=== PATIENT | male | born 1970 | race Caucasian/White ===

== ENCOUNTER 2018-04-11 07:30 | Inpatient (IN) | payer BC ==
--- NOTE | 2019-01-03 13:21 | HP ---
HISTORY AND PHYSICAL: DATE OF ADMISSION/SURGERY: 01/14/19 DATE OF OFFICE VISIT: 01/03/19 SURGEON: Sima Tran MD * (DICTATED BY NGUYEN TREJO) PROCEDURE: Right total hip arthroplasty. CHIEF COMPLAINT: Right hip pain. HISTORY OF PRESENT ILLNESS: Mr. Irizarry is a 48-year-old gentleman with continued complaints of right hip pain. He has failed conservative treatment and elected to proceed with a right total hip arthroplasty. PAST MEDICAL HISTORY: History of recurrent staph infections, some requiring IV antibiotics, last was over 10 years ago. PAST SURGICAL HISTORY: Fasciotomy right lower extremity. MEDICATIONS: Aleve as needed. ALLERGIES: No known drug allergies. FAMILY HISTORY: Cancer. SOCIAL HISTORY: He is a 48-year-old gentleman, lives with his . He does not smoke. He uses occasional alcohol. REVIEW OF SYSTEMS: A complete 14-point review of systems was reviewed with the patient. It was all negative or noncontributory. He denies history of DVT, PE , hepatitis, HIV, or anesthesia problems. PHYSICAL EXAMINATION GENERAL: He is well developed, well nourished, in no acute distress. VITAL SIGNS: He is 6 feet 1 inch tall, weighs 227 pounds. His blood pressure is 120/84, his heart rate is 94. HEENT: Normocephalic, atraumatic. NECK: Supple. No palpable lymph nodes. PULMONARY: The lungs are clear to auscultation bilaterally. CARDIO: Regular rate and rhythm. Strong S1, S2. ABDOMEN: Soft, nontender, nondistended. NEUROLOGICAL: He is alert and oriented x3. MUSCULOSKELETAL: Right lower extremity: The skin is intact. There are no open wounds or abrasions. He walks with an antalgic-type gait favoring his right hip. He has decreased internal and external rotation of the right hip. He has a 2+ dorsalis pedis pulse, intact sensation, and his lower extremity muscle group strengths are intact at 5/5. ASSESSMENT AND PLAN: Mr. Irizarry is a 48-year-old gentleman with severe end- stage osteoarthritis of the right hip. He has failed conservative treatment and elected to proceed with a right total hip arthroplasty. The surgery is scheduled for 01/14/[address] Tran discussed the risks and benefits of the surgery at today's visit and all of his questions were answered. He will follow up with Dr. Tran 2 weeks after the surgery. NGUYEN TREJO [id number]/CPS #: [id number] MTDD
[2019-01-13] MEDS ORDERED: Buffered Lidocaine 1% SYRIN* 1 ML/SYRINGE INTRADERM ONE (14:01)
[2019-01-14] MEDS ORDERED: Tranexamic Acid 1,000 MG in NS 0.9% 50 ML* (outpatient use) IV SCH ×2
[2019-01-14] MEDS ORDERED: Lactated Ringers 1000 ML Bag* 1,000 ML IV SCH (06:00)
[2019-01-14] MEDS ORDERED: Dexamethasone IV* 4 MG/ML 1 ML (4 MG) IV SLOW PU ONE (06:00)
[2019-01-14] MEDS ORDERED: Famotidine IV* 10 MG/ML 2 ML (20 mg) IV ONE (06:00)
[2019-01-14] MEDS ORDERED: Gabapentin CAP(*) 300 MG PO ONE (06:00)
[2019-01-14] MEDS ORDERED: celeCOXIB CAP* 200 MG PO ONE (06:00)
--- OUTSIDE RECORDS SUMMARY | 2019-01-14 13:42 | XMS REPORT | Continuity of Care Document ---
:1970 External Reference #:[id number] Author Name Aurelio Pickens M.D. (transmitted by agent of provider Edna Joshua) Address [address] [place] [address] Care Team Providers Name Role Phone Jaci Hunt M.D. 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 ETOH Use Current Alcohol Use - 1-3 Days A Week. Recreational Drug Use Never Used Drugs Allergies, Adverse Reactions, Alerts Description No Known Drug Allergies Medications Active Medications SIG Qnty Indications Ordering Date Provider Omeprazole 1 by mouth every 30caps Aurelio Pickens, 10/30/[address] M[address]D. Capsules DR Nava Allergy 1 by mouth every Unknown 10mg day Capsules Sudafed 2 tablets by mouth Unknown 30mg Tablets up to every 12 hours as needed for nasal congestion History Medications Amoxicillin/Clavulanate 1 by mouth 14tabs Aurelio Pickens, 11/25/2018 - Potassium twice a day M.D. 12/10/2018 875-125mg Tablets for 7 days Immunizations Description No Information Available Vital Signs Date Vital Result Comment 12/11/2018 8:18am Weight 234.00 lb Height 71 inches 5'11" BMI (Body Mass Index) 32.6 kg/m2 BP Systolic 111 mmHg BP Diastolic 74 mmHg Heart Rate 89 /min O2 % BldC Oximetry 96 % Body Temperature 97.1 F Pain Level 0 10/30/2018 8:42am Weight 232.00 lb Height 71 inches 5'11" BMI (Body Mass Index) 32.4 kg/m2 BP Systolic 118 mmHg BP Diastolic 76 mmHg Heart Rate 67 /min O2 % BldC Oximetry 97 % Body Temperature 98.1 F Pain Level 7 Results Test Acquired Date Facility Test Result H/L Range Note Laboratory test 11/25/2018 [facility] Cytology SEE RESULT 1 , [address] [employer]-[place] [place] [address] [phone] [id number] 2 SEE RESULT BELOW Name: TACOS ANTUNEZ : [address]: Aurelio Pickens MD Acct: [id number] Unit: [id number] AGE: 48 Location: [facility] Re11/25/18 SEX: M Status: REG REF SPEC: [id number] TATI: 11/25/18 [facility] DR: Aurleio Pickens MD REQ: [id number] RECD: 11/25/18 STATUS: SOUT _ ORDERED: [facility] INTERP [facility] COMMENTS: [id number] FINAL DIAGNOSIS Thyroid, left, fine needle aspiration: -- Benign thyroid nodule, colloid/hyperplastic (Ladora class II). The specimen demonstrates abundant watery colloid, a moderate amount of benign appearing follicular epithelium arranged in uniform sheets, medium sized follicles and only occasional small groups. No features of papillary carcinoma are seen. In this clinical setting the risk of malignancy is less than 3%. Clinical management of this thyroid nodule should be based on clinical and radiographic features as well as the above. SPECIMEN(S) RECEIVED THYROID LEFT - LEFT THYROID FINE NEEDLE ASPIRATION CONTINUED ON NEXT PAGE DEPARTMENT OF PATHOLOGY, [address] [place] [address] Matthew Herndon M.D. Director [facility] # [id number] CLINICAL HISTORY Left thyroid nodule. GROSS DESCRIPTION 1 Alcohol fixed slide(s) received from clinician, 5 Air dried slide(s) and Needle rinse in CytoLyt solution for thin layer non-machine coil assembler test.(clear) Signed by and Reported on: Matthew Herndon MD 1058 END OF REPORT DEPARTMENT OF PATHOLOGY, [address] [place] [address] Matthew Herndon M.D. Director [facility] # [id number] Procedures Date Code Description Status 11/25/2018 57527 Fine Needle Aspiration Biopsy Inlcd Ultrasound Guidance Completed 10/30/2018 43443 Ultrasound Head/Neck Completed 10/30/2018 33550 Fiberoptic Laryngoscopy,Diag. Completed Medical Devices Description No Information Available Encounters Type Date Location Provider Dx Diagnosis Office Visit 10/30/2018 Main Office Aurelio Pickens M.D. K21.9 Gastro- esophageal 8:30a reflux disease without esophagitis J31.0 Chronic rhinitis E04.1 Nontoxic single thyroid nodule J34.3 Hypertrophy of nasal turbinates Assessments Date Code Description Provider 11/25/2018 E04.1 Nontoxic single thyroid nodule Aurelio Pickens M.D. 10/30/2018 K21.9 Gastro-esophageal reflux disease without Aurelio Pickens M.D. esophagitis 10/30/2018 J31.0 Chronic rhinitis Aurelio Pickens M.D. 10/30/2018 E04.1 Nontoxic single thyroid nodule Aurelio Pickens M.D. 10/30/2018 J34.3 Hypertrophy of nasal turbinates Aurelio Pickens M.D. Plan of Treatment No Information Available Functional Status Description No Information Available Mental Status Description No Information Available Referrals Description No Information Available
--- OUTSIDE RECORDS SUMMARY | 2019-01-14 13:42 | XMS REPORT | Continuity of Care Document ---
:1970 External Reference #:[id number] Author Name Sima Tran M.D. (transmitted by agent of provider Liza Turner) Address [address] [facility] [place] [address] Care Team Providers Name Role Phone Jaci Hunt M.D. 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 Onset: region and thigh Social History Type Date Description Comments Sex Unknown ETOH Use Occasionally consumes alcohol Tobacco Use Start: Unknown End: Patient is a former smoker Unknown Smoking Status Reviewed: 01/03/19 Patient is a former smoker Exercise Type/Frequency Exercises sporadically Allergies, Adverse Reactions, Alerts Description No Known Drug Allergies Medications Active Medications SIG Qnty Indications Ordering Provider Date Aleve 2 tablets as Unknown 220mg Tablets needed for pain Immunizations Description No Information Available Vital Signs Date Vital Result Comment 01/03/2019 8:12am Height 73 inches 6'1" Weight 227.00 lb Heart Rate 94 /min BP Systolic 120 mmHg BP Diastolic 84 mmHg Respiratory Rate 16 /min Body Temperature 98.3 F Pain Level 3 O2 % BldC Oximetry 98 % BMI (Body Mass Index) 29.9 kg/m2 09/30/2018 8:33am Height 71 inches 5'11" Weight 229.00 lb BP Systolic 120 mmHg BP Diastolic 72 mmHg Respiratory Rate 16 /min Body Temperature 96.5 F Pain Level 7 BMI (Body Mass Index) 31.9 kg/m2 Results Description No Information Available Procedures Description No Information Available Medical Devices Description No Information Available Encounters Type Date Location Provider Dx Diagnosis Office Visit 09/30/2018 [facility] Sima Tran, M25.551 Pain in right hip 8:30a at [facility] M16.11 Unilateral primary osteoarthritis, right hip Assessments Date Code Description Provider 01/03/2019 M25.551 Pain in right hip Sima Tran M.D. 01/03/2019 M16.11 Unilateral primary osteoarthritis, right hip Sima Tran M.D. 09/30/2018 M25.551 Pain in right hip Sima Tran M.D. 09/30/2018 M16.11 Unilateral primary osteoarthritis, right hip Sima Tran M.D. Plan of Treatment Future Appointment(s):01/14/2019 4:30 pm - Sima Tran M.D. at [facility] at Aadpyb4001/03/2019 - Sima Tran M.D.M25.551 Pain in right hipFollow up:Follow up: 2 weeks after ohddycdE34.11 Unilateral primary osteoarthritis, right hip Functional Status Description No Information Available Mental Status Description No Information Available Referrals Description No Information Available
--- OUTSIDE RECORDS SUMMARY | 2019-01-14 13:42 | XMS REPORT | Continuity of Care Document ---
:1970 External Reference #:[id number] Author Name Sima Tran M.D. (transmitted by agent of provider Liza Turner) Address [address] [facility] [place] [address] Care Team Providers Name Role Phone Jaci Hunt M.D. - Internal Care Team Information [employer] [phone] Medicine Problems Active Problems Provider Date Localized, [...] Location Provider Dx Diagnosis Office Visit 09/30/2018 [facility] Sima Tran, M25.551 Pain in right [...] 4:30 pm - Sima Tran M.D. at [facility] at Ypbkki5101/03/2019 - Sima Tran M.D.M25.551 Pain in right hipFollow up:Follow up: 2 weeks after olxhkzlL35.11 Unilateral primary osteoarthritis, right hip Functional Status Description No Information Available Mental Status Description No Information Available Referrals Description No Information Available
--- OUTSIDE RECORDS SUMMARY | 2019-01-14 13:42 | XMS REPORT | Continuity of Care Document ---
:1970 External Reference #:[id number] Author Name Rishabh Salas M.D. (transmitted by agent of provider Aida Banda) Address [address] [address] Care Team Providers Name Role Phone Jaci Hunt M.D. 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 White Blood 4.8 10^3/uL Normal 3.5-10.[address] [place] [address] [phone] Red Blood Count 5.32 10^6/uL Normal 4.18-5.48 Hemoglobin 15.6 g/dL Normal 14.0-18.0 Hematocrit 46 % Normal 42-52 Mean Corpuscular Volume 87 fL Normal 80-94 Mean Corpuscular Hemoglobin 29 pg Normal 27-31 Mean Corpuscular HGB Conc 34 g/dL Normal 31-36 Red Cell Distribution Width 14 % Normal 10-15 Platelet Count 252 10^3/uL Normal 150-450 Mean Platelet Volume 8.0 fL Normal 7.4-10.4 Abs Neutrophils 2.0 10^3/uL Normal 1.5-7.7 Abs Lymphocytes 2.2 10^3/uL Normal 1.0-4.8 Abs Monocytes 0.5 10^3/uL Normal 0-0.8 Abs Eosinophils 0.1 10^3/uL Normal 0-0.6 Abs Basophils 0.0 10^3/uL Normal 0-0.2 Abs Nucleated RBC 0.0 10^3/uL Granulocyte % 41.0 % Lymphocyte % 44.9 % Monocyte % 10.6 % Eosinophil % 3.1 % Basophil % 0.4 % Nucleated Red Blood Cells % 0.2 Urinalysis Profile 01/03/2019 [facility] Urine Color Yellow [address] [place] [address] [phone] Urine Appearance Clear Urine Specific [place] 1.016 Normal 1.010-1.030 Urine pH 6.0 Normal 5-9 Urine Urobilinogen Negative Negative Urine Ketones Negative Negative Urine Protein Negative Negative Urine Leukocytes Negative Negative Urine Blood Negative Negative * * Abnormal Negative 1 Urine Nitrite Negative Negative Urine Bilirubin Negative Negative Urine Glucose Negative Negative Inr/Protime 01/03/2019 [facility] Inr 0.98 Normal 0.82-1.[address] [place] [address] [phone] Laboratory test 01/03/2019 [facility] Partial 38.2 High 26.0- 38.[address] [address] Time PTT [phone] Comp Metabolic 01/03/2019 [facility] Sodium 137 mmol/L Normal 135-[address] [place] [address] [phone] Potassium 4.5 mmol/L Normal 3.5-5.0 Chloride 105 mmol/L Normal 101-111 Co2 Carbon Dioxide 26 mmol/L Normal 22-32 Anion Gap 6 mmol/L Normal 2-11 Glucose 84 mg/dL Normal 70-100 Blood Urea Nitrogen 12 mg/dL Normal 6-24 Creatinine 0.79 mg/dL Normal 0.67-1.17 BUN/Creatinine Ratio 15.2 Normal 8-20 Calcium 9.5 mg/dL Normal 8.6-10.3 Total Protein 7.3 g/dL Normal 6.4-8.9 Albumin 4.4 g/dL Normal 3.2-5.2 Globulin 2.9 g/dL Normal 2-4 Albumin/Globulin Ratio 1.5 Normal 1-3 Total Bilirubin 0.60 mg/dL Normal 0.2-1.0 Alkaline Phosphatase 82 U/L Normal 34-104 Alt 39 U/L Normal 7-52 Ast 20 U/L Normal 13-39 Egfr Non- 105.1 >60 Egfr 127.2 >60 3 Type & Screen 01/03/2019 [facility] Patient Blood Type A Positive [address] [place] [address] [phone] Antibody Screen NEGATIVE Urine Culture And 01/03/2019 [facility] Urine Culture SEE RESULT [address] [place] [address] [phone] 1 *Ascorbic acid is present which may interfere with detection of blood. 2 Standard intensity warfarin therapeutic range: 2.0-3.0 High intensity warfarin therapeutic range: 2.5-3.5 3 Because ethnic data is not always readily available, this report includes an eGFR for both -Americans and non- Americans. The National Kidney Disease Education Program (NKDEP) does not endorse the use of the MDRD equation for patients that are not between the ages of 18 and 70, are , have extremes of body size, muscle mass, or nutritional status, or are non- or non-. According to the National Kidney Foundation, irrespective of diagnosis, the stage of the disease is based on the level of kidney function: Stage Description GFR(mL/min/1.73 m(2)) 1 Kidney damage with normal or decreased GFR 90 2 Kidney damage with mild decrease in GFR 60-89 3 Moderate decrease in GFR 30-59 4 Severe decrease in GFR 15-29 5 Kidney failure <15 (or dialysis) 4 SEE RESULT BELOW Name: TACOS ANTUNEZ : [address]: Sima Tran MD Acct: [id number] Unit: [id number] AGE: 48 Location: [facility] Re01/03/19 SEX: M Status: REG REF SPEC: [id number] TATI: 01/03/[address] [facility] [address]: Sima Tran MD REQ: [id number] RECD: 01/03/19 STATUS: IRAIS CRAWLEY DR: Jaci Hunt MD _ SOURCE: URINE SPDESC: ORDERED: Urine Culture QUERIES: Urine Source: Clean Catch Procedure Result Reported Site Urine Culture Final 01/04/19- 1435 ML No Growth (<1,000 CFU/mL) * ML - Main Lab . END OF REPORT DEPARTMENT OF PATHOLOGY, [address] [place] [address] Matthew Herndon M.D. Director [facility] # [id number] Procedures Description No Information Available Medical Devices Description No Information Available Encounters Type Date Location Provider Dx Diagnosis Office Visit 09/30/2018 [facility] Sima Tran, M25.551 Pain in right hip 8:30a at [place] M16.11 Unilateral primary osteoarthritis, right hip Assessments Date Code Description Provider 01/03/2019 M25.551 Pain in right hip Sima Tran M.D. 01/03/2019 M16.11 Unilateral primary osteoarthritis, right hip Sima Tran M.D. 09/30/2018 M25.551 Pain in right hip Sima Tran M.D. 09/30/2018 M16.11 Unilateral primary osteoarthritis, right hip Sima Tran M.D. Plan of Treatment Future Appointment(s):01/14/2019 4:30 pm - Brian Huerta PA-C at [facility]01/14/2019 4:30 pm - NGUYEN Veras at [facility]01/14/2019 4:30 pm - Sima Tran M.D. at [facility]01/03/2019 - Sima Tran M.D.M25.551 Pain in right hipFollow up:Follow up: 2 weeks after qouzdmjY70.11 Unilateral primary osteoarthritis, right hip Functional Status Description No Information Available Mental Status Description No Information Available Referrals Description No Information Available
[2019-01-14] MEDS ORDERED: Dexamethasone IV* 4 MG/ML 1 ML (4 MG) ONE (14:11)
[2019-01-14] MEDS ORDERED: Famotidine IV* 10 MG/ML 2 ML (20 mg) ONE (14:12)
[2019-01-14] MEDS ORDERED: celeCOXIB CAP* 200 MG ONE (14:12)
[2019-01-14] MEDS ORDERED: ceFAZolin 2 GM PREMIX in ORs 2 GM/50 ML BAG ONE (14:12)
[2019-01-14] MEDS ORDERED: Gabapentin CAP(*) 300 MG ONE ×2 (14:12→14:39)
[2019-01-14] MEDS ORDERED: Buffered Lidocaine 1% SYRIN* 1 ML/SYRINGE INTRADERM ONE (14:12)
[2019-01-14] MEDS ORDERED: Bupivacaine 0.5% SDV PF* 30ML VIAL ONE ×2 (14:58→17:47)
[2019-01-14] MEDS ORDERED: KETAMINE HCL* 50 MG/ML 10 ML VIAL ONE (17:29)
[2019-01-14] MEDS ORDERED: Midazolam* 1 MG/ML 5 ML VIAL (5 MG) ONE (17:29)
[2019-01-14] MEDS ORDERED: Propofol* 500 MG/50 ML BTL ONE (17:31)
[2019-01-14] MEDS ORDERED: Magnesium Hydroxide LIQ* 30 ML UDC PO PRN (18:28)
[2019-01-14] MEDS ORDERED: diPHENhydraMINE LIQ* 12.5 MG/5 ML UDC PO PRN (18:28)
[2019-01-14] MEDS ORDERED: diPHENhydraMINE IV* 50 MG/ML 1 ml VIAL (BENADRYL) IV PRN (18:28)
[2019-01-14] MEDS ORDERED: diPHENhydraMINE PO* 25 MG PO PRN (18:28)
[2019-01-14] MEDS ORDERED: Morphine INJ* 2 MG/ML 1 ML SYRINGE (TWO MG - NEW SYRINGE VERSION) IV PRN (18:28)
[2019-01-14] MEDS ORDERED: Ondansetron TAB* 4 MG PO PRN (18:28)
[2019-01-14] MEDS ORDERED: oxyCODONE/Acetamin 5/325 MG* TAB PO PRN (18:28)
[2019-01-14] MEDS ORDERED: Ondansetron INJ* 2 MG/ML VIAL IV PRN ×2 (18:28→20:38)
[2019-01-14] MEDS ORDERED: Ondansetron ODT TAB* 4 MG PO PRN (18:28)
[2019-01-14] MEDS ORDERED: Polyethylene Glycol 3350* 17 GM PACKET PO PRN (18:28)
[2019-01-14] MEDS ORDERED: Pseudoephedrine HCL ER TAB* 120 MG PO PRN (18:30)
[2019-01-14] MEDS ORDERED: Midazolam* 1 MG/ML 2 ML VIAL (2 MG) ONE (18:43)
[2019-01-14] MEDS ORDERED: Phenylephrine 10 MG/ML VIAL* 1 ML VIAL ONE (19:05)
[2019-01-14] MEDS ORDERED: fentaNYL* 50 MCG/ML 2 ML VIAL (100 MCG VIAL) ONE (19:38)
[2019-01-14] MEDS ORDERED: Propofol* 10 MG/ML 20 ML BTL ONE (20:10)
[2019-01-14] MEDS ORDERED: HYDROmorphone INJ1* 1 MG/ML SYRINGE IV PRN (20:38)
[2019-01-14] MEDS ORDERED: Acetaminophen IV 1GM/100ML * 10 MG/ML VIAL IVPB ONE (20:38)
[2019-01-14] MEDS ORDERED: Naloxone* 0.4 MG/ML 1 ML VIAL IV PRN (20:38)
--- NOTE | 2019-01-14 20:47 | OP ---
Operative Report - Blank - Operative Report Date of Operation: 01/14/19 Note: SALOME ANTUNEZ 1970 Date Of Surgery: 01/14/19 Sima Tran MD Compressor Mechanic: Delvis CEDILLO did help throughout the procedure with preparation of the hip, wound retraction, manipulation of the hip, and wound closure. Anesthesiologist: Jennifer Jones MD Anesthesia Type: Spinal Preoperative Diagnosis: Right severe degenerative osteoarthritis of the hip Postoperative Diagnosis: As above Procedure Performed: Right Total Hip Arthroplasty Complications: None Specimen: Femoral head and acetabular reamings sent to pathology. Hardware used: This is uncemented Muna total hip arthroplasty hardware for the femur a size 5 accolade II with 127 neck angle femoral component, for the acetabulum a size 52E trident II tritanium cluster hole shell, 15mm screw, for the insert a size 36E trident X3 polyethylene insert, and for the femoral head a size 36 + 0 ceramic biolox V40 femoral head. Brief history/Indication: SALOME ANTUNEZ was known in clinic and had a history of severe right hip pain. He failed conservative treatment with anti- inflammatories, pain pills, intra-articular injections and physical therapy. He elected to undergo right total hip arthroplasty due to continued pain and decreased quality of life. Radiographs showed severe end stage osteoarthritis of the hip with bone on bone contact. Informed consent was obtained from the patient. He understood the risks of surgery included but were not limited to: bleeding, infection, damage to nearby structures, intraoperative fracture, nerve palsy, failure of the hardware, early loosening, stiffness or loss of motion, dislocation, leg length discrepancy, anesthesia complications, stroke, heart attack, blood clot and . He wished to proceed. Intra-Operative findings: Intraoperatively the patient was noted to have severe loss of cartilage of the acetabulum and femoral head. Description of the Procedure: SALOME ANTUNEZ was identified in the preanesthesia unit. His right hip was marked as the correct operative side. Informed consent was signed and placed in the chart. The patient was taken to the operating room and placed under anesthesia without complication. A santana catheter was placed. The patient was placed on the peg board with all bony prominences well padded. The right lower extremity was prepped and draped in the usual sterile fashion. Preoperative time -out was made to correctly identify the patient, side and site. Appropriate intraoperative antibiotics were given within one hour of incision. A standard posterior incision was made and carried sharply down to the lateral fascia. A new 10 blade was used to make an incision in the fascia in line with the skin incision. A charnley retractor was placed. The piriformis and conjoined tendons were identified and elevated off the posterolateral femur using electrocautery. These were tagged with number 5 Ethibond. Next electrocautery was used to make a posterolateral capsular flap and this was tagged with number 5 Ethibonds. The hip was carefully dislocated. Lesser trochanter to the center of the femoral head was measured at 55 mm. The oscillating saw was used to make the femoral neck cut. The femoral head was carefully removed. The femur was retracted anteriorly and the acetabular retractors were placed. Long-handled knife was used to sharply remove any remaining labrum from the acetabular rim. The acetabulum was sequentially reamed up to a size 52. A bleeding subchondral bone bed was obtained. A trial liner was placed and had excellent fit and stability. A 52E cup with a 15mm screw was placed and had excellent stability with appropriate anteversion and abduction angle. A size 36E polyethylene liner was impacted into the acetabular shell. The liner was checked for stability and was stable. Next attention was turned to preparation of the femoral canal. A canal finder was used to enter the proximal femur. The femoral canal was sequentially broached up to a size 5 femoral broach trial. A trial neck and 36 + 0 trial femoral head was chosen. Lesser trochanter to center of the femoral head measurement was satisfactory. The hip was reduced and taken through a range of motion. The hip was stable in all positions with good soft tissue tension and appropriate leg lengths. The hip was dislocated and all trials were removed. The final implant chosen was a size 5 accolade II stem. This stem was impacted into the femoral canal without difficulty. The stem was stable with appropriate anteversion. The femoral head chosen was a 36 + 0 ceramic head. The head was impacted onto the femoral neck without difficulty. The final lesser trochanter to center of the femoral head measurement was satisfactory. The hip was reduced and taken through a range of motion. The hip was stable in all positions with good soft tissue tension and appropriate leg lengths. The hip was copiously irrigated with sterile saline. The previously tagged capsule and tendons were repaired to the posterolateral femur through two trochanteric drill holes. The lateral fascia layer was closed using number 1 vicryls. The rest of the incision was closed in a layered fashion using 0 and 2-0 vicryls. The skin was closed using 3-0 monocryl suture and Dermabond. Sterile adaptic, 4x4s and paper tape was used to cover the incision. The patients anesthesia was reversed without difficulty. He was taken to the PACU in stable condition. Intended weight-bearing will be as tolerated with posterior hip precautions.
[2019-01-14] MEDS ORDERED: Acetaminophen IV 1GM/100ML * 100 ML ONE (20:56)
[2019-01-14] MEDS ORDERED: HYDROmorphone INJ1* 1 MG/ML SYRINGE ONE (21:44)
[2019-01-14] MEDS: Lactated Ringers 1000 ML Bag* 1,000 ML IV SCH (22:55)
[2019-01-14] MEDS: Docusate CAP* 100 MG PO SCH (23:13)
[2019-01-14] MEDS: Magnesium Hydroxide LIQ* 30 ML UDC PO SCH (23:14)
[2019-01-15] MEDS: ceFAZolin 1 GM ADVAN(*) 1 GM in NS 0.9% 50 ML* 50 ML IVPB SCH ×3 (01:37→17:12)
[2019-01-15 05:01] LABS: Hematocrit 39 % (42-52); Hemoglobin 13.4 g/dL (14.0-18.0); Mean Platelet Volume 7.7 fL (7.4-10.4); Platelet Count 254 10^3/uL (150-450)
[2019-01-15 05:21] LABS: BUN/Creatinine Ratio 24.2 (8-20); Calcium 8.9 mg/dL (8.6-10.3); EGFR African American 156.5 (>60); EGFR Non-African American 129.4 (>60); Potassium 4.2 mmol/L (3.5-5.0)
[2019-01-15] MEDS: oxyCODONE TAB* 5 MG TAB PO PRN ×4 (06:35→21:11)
[2019-01-15] MEDS: Acetaminophen TAB* 325 MG PO SCH ×3 (06:37→21:57)
--- NOTE | 2019-01-15 08:09 | PN ---
Progress Note - Progress Note Date of Service: 01/15/19 SOAP: Subjective: []Pt seen at bedside. His right hip pain is moderate. Denies CP, SOB, dizziness or nausea. Desires to dc home without narcotics if pain is well enough controlled without. Objective: []Gen: NAD RLE: right hip dressing CDI, thigh is soft, DF/PF intact, DP2+, sensation intact to light touch distally Calves supple and nontender without erythema, edema or palpable cords Assessment: []POD 1 sp RTH Plan: []WBAT PT/OT posterior hip precautions Space out narcotics, utilize tramadol as primary and oxycodone as breakthrough rather than percocet and oxycodone, wean off narcotics as much as possible as patient desires DC home without narcotics if able. Vital Signs Temp 98.0 F 01/15/19 07:32 Pulse 73 01/15/19 07:32 Resp 16 01/15/19 07:32 BP 130/68 01/15/19 07:32 Pulse Ox 98 01/15/19 07:32 Intake & Output 01/14/19 01/15/19 01/15/19 18:59 06:59 18:59 Intake Total 2480 Output Total 650 Balance 1830 Weight 235 lb 6.4 oz Intake: IV Fluids 2000 LR 1900 NS 100ML, Cefazolin 2G 100 Oral 480 Output: [place] 400 Estimated Blood Loss 250 Other: Estimated Blood Loss per OR paperwork Comment Laboratory Last Values Hgb 13.4 g/dL (14.0-18.0) L 01/15/19 04:52 Hct 39 % (42-52) L 01/15/19 04:52 Plt Count 254 10^3/uL (150-450) 01/15/19 04:52 MPV 7.7 fL (7.4-10.4) 01/15/19 04:52 Sodium 135 mmol/L (135-145) 01/15/19 04:52 Potassium 4.2 mmol/L (3.5-5.0) 01/15/19 04:52 Chloride 105 mmol/L (101-111) 01/15/19 04:52 Carbon Dioxide 24 mmol/L (22-32) 01/15/19 04:52 Anion Gap 6 mmol/L (2-11) 01/15/19 04:52 BUN 16 mg/dL (6-24) 01/15/19 04:52 Creatinine 0.66 mg/dL (0.67-1.17) L 01/15/19 04:52 Est GFR ( Amer) 156.5 (>60) 01/15/19 04:52 Est GFR (Non-Af Amer) 129.4 (>60) 01/15/19 04:52 BUN/Creatinine Ratio 24.2 (8-20) H 01/15/19 04:52 Glucose 145 mg/dL (70-100) H 01/15/19 04:52 Calcium 8.9 mg/dL (8.6-10.3) 01/15/19 04:52
[2019-01-15] MEDS ORDERED: oxyCODONE TAB* 5 MG TAB PO PRN (08:10)
[2019-01-15] MEDS: traMADol TAB* 50 MG PO PRN (08:29)
[2019-01-15] MEDS: Magnesium Hydroxide LIQ* 30 ML UDC PO SCH ×2 (08:38→21:28)
[2019-01-15] MEDS: Vitamin THERAPEUTIC TAB PO SCH (08:39)
[2019-01-15] MEDS: Docusate CAP* 100 MG PO SCH ×2 (08:39→21:28)
[2019-01-15] MEDS: Apixaban* 2.5 MG TAB PO SCH ×2 (08:39→21:28)
[2019-01-15] MEDS: Lactated Ringers 1000 ML Bag* 1,000 ML IV SCH (09:30)
[2019-01-15] MEDS: Cyclobenzaprine TAB* 10 MG PO PRN ×2 (09:37→21:09)
[2019-01-16] MEDS: traMADol TAB* 50 MG PO PRN ×2 (00:26→14:23)
[2019-01-16] MEDS: oxyCODONE TAB* 5 MG TAB PO PRN ×2 (02:31→07:23)
[2019-01-16 05:48] LABS: Hematocrit 35 % (42-52); Hemoglobin 12.1 g/dL (14.0-18.0); Mean Platelet Volume 7.9 fL (7.4-10.4); Platelet Count 221 10^3/uL (150-450)
[2019-01-16] MEDS: Acetaminophen TAB* 325 MG PO SCH ×2 (06:03→13:20)
[2019-01-16] MEDS: Docusate CAP* 100 MG PO SCH (08:35)
[2019-01-16] MEDS: Magnesium Hydroxide LIQ* 30 ML UDC PO SCH (08:35)
[2019-01-16] MEDS: Apixaban* 2.5 MG TAB PO SCH (08:35)
[2019-01-16] MEDS: Vitamin THERAPEUTIC TAB PO SCH (08:35)
--- NOTE | 2019-01-16 09:53 | DS ---
Orthopedic Discharge Summary - Discharge Summary Date of Admission:01/14/19 Date of Discharge: 01/16/19 Date of Surgery: 01/14/19 Attending Orthopedic Provider: Dr Tran Pre-operative Diagnosis: Right hip osteoarthritis Operative Procedure: right total hip replacement Disposition of Patient: home with visiting nurse and PT Condition of Patient: stable History: SALOME ANTUNEZ is a 48 year old M with years of increasingly severe right hip pain. Patient has failed conservative management and has elected to undergo a right total hip replacement Hospital Course: SALOME was admitted to [facility] on 01/14/19. Patient underwent a right total hip replacement without complication followed by a brief recovery in PACU and transfer to the Short Stay Surgical Unit in stable condition. physical therapy and occupational therapy also participated in this patients care. Post-op day 1: patient was alert and in no acute distress. Dressing was clean, dry and intact. Operative extremity dorsiflexion and plantarflexion intact, sensation intact to light touch distally, DP2+. Post- op day two: dressing was changed. incision was clean, dry and intact. Patient was deemed to be medically and orthopedically stable for discharge. Physical therapy goals were met. Discharge Medications Acetaminophen TAB* [Tylenol TAB*] 650 mg PO BID PRN 01/03/19 [History Confirmed 01/03/19] Astelin 1 spray BOTH NARES BID PRN 01/03/19 [History Confirmed 01/03/19] Cetirizine* [ZyrTEC 10 MG TAB*] 10 mg PO QAM 01/03/19 [History Confirmed ] Pseudoephedrine HCL ER TAB* [Sudafed 12 Hour*] 120 mg PO BID PRN 01/03/19 [ History Confirmed 01/03/19] Acetaminophen TAB* [Tylenol TAB*] 975 mg PO Q8HR tab 01/16/19 [Rx] Apixaban* [Eliquis*] 2.5 mg PO BID #60 tab 01/16/19 [Rx] Docusate CAP* [Colace Cap*] 100 mg PO BID PRN #90 cap 01/16/19 [Rx] Morphine TAB Extended Rel(*) [Ms Contin(*)] 15 mg PO BID 3 Days #6 tab.er MDD 2 01/16/19 [Rx] oxyCODONE TAB* [Roxycodone TAB 5 mg*] 5 mg PO Q4H PRN tab MDD 10 01/16/19 [Rx] oxyCODONE TAB* [Roxycodone TAB 5 mg*] 10 mg PO Q4H PRN #70 tab MDD 10 01/16/19 [ Rx] Discharge Instructions following Orthopedic Surgery: Activity: * Weight Bearing as tolerated * Continue physical therapy and occupational therapy exercises as shown * Home physical therapy Hip replacements: Continue Hip Precautions- do not cross legs or bend greater than 90 degrees/squat Wound care: * OK to shower on post-op day 3, no bathing, swimming, or submerging wound. * Use gentle soap, pat dry. Cover with gauze, DILLON wrap or tape. * Visiting home nurse to do wound checks. Call Orthopedic office for: * Increased drainage * Redness * Increased pain * Fever Go to ER with shortness of breath or chest pain. Diet: * Regular diet * Increase fluids and fiber to prevent constipation. * Continue to use stool softeners, call office if no bowel motion within 48 hours. Medications See Home Medication List in your packet for medications that you should take after discharge. DVT Prophylaxis: Eliquis Dosin.5 mg, 1 tab every 12 hours x 30 days post op. Increases bleeding tendency Pain Control: MS Contin 15 mg 1 tab every 12 hours. Max 2 tabs per day. Wean off as soon as pain allows, hold for sedation. Stop using once pain is well controlled and use oxycodone and tylenol alone. Oxycodone 5 mg Take 1 tab for moderate and 2 tabs for severe pain by mouth every 4 hours as needed. Maximum of 10 tabs per day. Hold for sedation, wean off as soon as pain allows. Tylenol 650 mg take 650 mg every 4 hours as needed for pain, max 4000 mg per day Antibiotics are required prior to any dental work. FOLLOW UP: Follow up with Dr. Sierra Within 10-14 days, call for appointment Please call our office with any questions or concerns ([phone]) [facility]
[2019-01-16] MEDS ORDERED: Morphine TAB Extended Release (*) 15 MG TAB.ER PO SCH (10:00)
[2019-01-16] MEDS ORDERED: Bisacodyl SUPP* 10 MG SUPP ONE (13:15)
[2019-01-16 15:22] VITALS: BP 124/74
[2019-01-16] MEDS ORDERED: Bisacodyl SUPP* 10 MG SUPP PR PRN (18:28)
== END 2019-01-16 15:50 | disposition home or self-care (01) | DRG 301 ==
LOC: AA 01-14 13:38 → SSU 01-14 22:05
PROVIDERS: ADMIT Orthopaedic Surgery Adult Reconstructive Orthopaedic Surgery; ATTEND Orthopaedic Surgery Adult Reconstructive Orthopaedic Surgery
PROC: 0SR904A Replacement of Right Hip Joint with Ceramic on Polyethylene Synthetic Substitute, Uncemented, Open Approach (ICD-10-PCS; principal; 2019-01-14 16:15)
DX: M16.11 Unilateral primary osteoarthritis, right hip (principal); E78.5 Hyperlipidemia, unspecified; E04.1 Nontoxic single thyroid nodule; J31.0 Chronic rhinitis; G89.29 Other chronic pain; M54.9 Dorsalgia, unspecified; F41.9 Anxiety disorder, unspecified; F40.240 Claustrophobia; G43.909 Migraine, unspecified, not intractable, without status migrainosus; Z91.81 History of falling; Z87.891 Personal history of nicotine dependence; Z79.899 Other long term (current) drug therapy
CPT/HCPCS: 36415; 80048; 85014; 85018; 85049; A9270-GY; C1713; C1776; J0690; J1100; J1170; J2250; J2270; J2704; J3010; J3490

== ENCOUNTER 2023-04-10 10:42 | Observation (INO) ==
[~2023-04-10 10:42] MED LIST: Glycopyrrolate IV 0.2 MG/ML 1 ML VIAL ONE; Lidocaine 2% PF 5 ML VIAL ONE; Midazolam 2 mg/2 ml VIAL 1 mg/ml 2 ml VIAL (2 mg) ONE; Naloxone 0.4 mg VIAL 0.4 mg/ml 1 ml VIAL IV PRN; Ondansetron 4 mg VIAL 2 MG/ML 2 ml VIAL IV PRN; Ondansetron 4 mg VIAL 2 MG/ML 2 ml VIAL ONE; fentaNYL 100 mcg/2 ml 50 MCG/ML VIAL IV PRN; fentaNYL 100 mcg/2 ml 50 MCG/ML VIAL ONE
[2023-04-10] MEDS ORDERED: ceFAZolin 2 GM in NS PREMIX 2 GM/100 ML BAG IVPB ONE (11:20)
[2023-04-10] MEDS ORDERED: ROPIVACAINE 5 MG/ML 30 ML BTL (0.5%) ONE (12:13)
[2023-04-10] MEDS ORDERED: Rocuronium 50 mg VIAL 10 mg/ml 5 ml VIAL (50 mg) ONE ×2 (12:39→15:16)
[2023-04-10 13:45] LABS: Rapid COVID-19 Molecular Undetected (Undetected)
[2023-04-10] MEDS ORDERED: HYDROmorphone 0.5 MG/0.5 ML SYRINGE ONE (14:08)
[2023-04-10] MEDS ORDERED: fentaNYL 250 mcg/5 ml 50 MCG/ML 5 ml VIAL (250 MCG) ONE (14:11)
[2023-04-10] MEDS ORDERED: KETAMINE HCL 10 MG/ML 20 ml VIAL (200 MG) ONE (14:13)
[2023-04-10] MEDS ORDERED: Magnesium Hydroxide LIQ 30 ML UDC PO PRN (14:14)
[2023-04-10] MEDS ORDERED: Ondansetron 4 mg VIAL 2 MG/ML 2 ml VIAL IV PRN (14:14)
[2023-04-10] MEDS ORDERED: Morphine 2 MG/ML SYRINGE IV PRN (14:14)
[2023-04-10] MEDS ORDERED: Ondansetron ODT 4 mg TAB 4 MG TAB PO PRN (14:14)
[2023-04-10] MEDS ORDERED: Lactulose 30 ml UDC PO PRN (14:14)
[2023-04-10] MEDS ORDERED: Acetaminophen IV 1 GM/100ML 1,000 MG/100 ML BAG IV ONE (14:23)
[2023-04-10] MEDS ORDERED: Dexmedetomidine 200 mcg/2 ml 2 ml VIAL (200 mcg) ONE (16:02)
[2023-04-10] MEDS: Lactated Ringers 1000 ml BAG 1,000 ML IV SCH ×2 (20:22→21:42)
[2023-04-10] MEDS: Senna TAB 8.6 mg TAB PO SCH (20:24)
[2023-04-10] MEDS: Magnesium Hydroxide LIQ 30 ML UDC PO SCH (20:24)
[2023-04-10] MEDS: NF: (Azelastine 137 mcg (0.1 %) Aerosol,Spray) INTRANASAL SCH (21:35)
[2023-04-10] MEDS: Buffered Lidocaine 1% SYRIN 1 ml INTRADERM ONE (21:42)
[2023-04-10] MEDS: ceFAZolin 1 GM ADVAN 1 GM in NS 0.9% 50 ML 50 ML IVPB SCH (22:10)
[2023-04-11 06:27] LABS: Hematocrit 37.6 % (38-53); Hemoglobin 12.8 g/dL (13.2-16.3); Mean Platelet Volume 8.1 fL (7.5-11.2); Platelet Count 254 10^3/uL (150-450)
[2023-04-11 06:57] LABS: Calcium 8.4 mg/dL (8.6-10.3); Creatinine, Serum 0.63 mg/dL (0.67-1.17); eGFR CKD-EPI 114.4 (>60)
[2023-04-11] MEDS: Polyethylene Glycol 3350 17 GM PACKET PO SCH (09:14)
[2023-04-11] MEDS: Vitamin THERAPEUTIC TAB PO SCH (09:14)
[2023-04-12 06:07] LABS: Hematocrit 36.3 % (38-53); Hemoglobin 12.7 g/dL (13.2-16.3); Mean Platelet Volume 7.9 fL (7.5-11.2); Platelet Count 229 10^3/uL (150-450)
[2023-04-12 06:42] LABS: Calcium 8.3 mg/dL (8.6-10.3); Creatinine, Serum 0.71 mg/dL (0.67-1.17); Potassium 4.6 mmol/L (3.5-5.0); eGFR CKD-EPI 110.4 (>60)
[2023-04-12 09:50] VITALS: BP 125/64
== END 2023-04-12 14:23 | disposition home or self-care (01) ==
LOC: OR 10:42 → SSU 10:42 → EDSTATUS 13:30
PROVIDERS: ADMIT Orthopaedic Surgery Adult Reconstructive Orthopaedic Surgery; ATTEND Orthopaedic Surgery Adult Reconstructive Orthopaedic Surgery